=== PATIENT | male | born 1985 | race Caucasian/White ===

== ENCOUNTER 2023-11-05 20:43 | Emergency (ER) | payer MEDICAID ==
[~2023-11-05] VITALS: Ht 180.3 cm; Wt 72.6 kg
[2023-11-05 20:43] VITALS: BP 125/77; PULSE 75; RESP 16; TEMP 98.2; O2SAT 98
--- NOTE | 2023-11-05 20:43 | NUR ---
PT [facility] [employer], PREBOOK. TAKEN TO BED 10
--- NOTE | 2023-11-05 20:58 | NUR ---
Dr. Nur examining patient.
--- NOTE | 2023-11-05 21:29 | NUR ---
PT RETURN FROM CT
[2023-11-05 21:46] VITALS: BP 123/83; PULSE 67; RESP 23; O2SAT 97
--- NOTE | 2023-11-05 22:06 | NUR ---
Patient discharged with v/s stable. Written and verbal after care instructions given and explained. Patient verbalized understanding. Police with in custody. All questions addressed prior to discharge. Advised to follow up with PMD.
== END 2023-11-05 22:06 ==
LOC: MED 20:43
DX: Z02.89 Encounter for other administrative examinations (principal)
CPT/HCPCS: 99284

== ENCOUNTER 2023-11-06 00:30 | Emergency (ER) | payer MEDICAID ==
[~2023-11-06] VITALS: Ht 175.3 cm; Wt 74.8 kg
--- NOTE | 2023-11-06 00:34 | NUR ---
PT TAKEN TO BED 4
--- NOTE | 2023-11-06 00:41 | NUR ---
Dr. Nur examining patient.
[2023-11-06] MEDS ORDERED: NALOXONE 0.4 MG/ML VIAL IVP PRN (00:45)
[2023-11-06 01:02] VITALS: BP 110/88; PULSE 95; RESP 20; O2SAT 100
[2023-11-06 01:06] LABS: BASOPHILS # (AUTO) 0.2 K/uL (0.00-0.22); BASOPHILS % (AUTO) 3.4 % (0.0-2.0); EOSINOPHILS # (AUTO) 0.1 K/uL (0-0.4); EOSINOPHILS % (AUTO) 1.8 % (0.0-4.0); HEMATOCRIT 35.6 % (36-52); HEMOGLOBIN 11.8 g/dL (12.0-18.0); LYMPHOCYTES # (AUTO) 1.2 K/uL (2.0-11.5); LYMPHOCYTES % (AUTO) 18.7 % (20.5-51.1); MEAN CORPUSCULAR HEMOGLOBIN 24 pg (27-31); MEAN CORPUSCULAR HGB CONC 33 g/dL (33-37); MEAN CORPUSCULAR VOLUME 72.1 fL (80-94); MONOCYTES # (AUTO) 0.3 K/uL (0.8-1.0); MONOCYTES % (AUTO) 5.5 % (1.7-9.3); NEUTROPHILS # (AUTO) 4.3 K/uL (1.8-7.7); NEUTROPHILS % (AUTO) 70.6 % (42.2-75.2); PLATELET COUNT (AUTO) 371 K/uL (140-450); RED BLOOD CELL COUNT(AUTO) 4.94 MIL/uL (4.20-6.10); RED CELL DISTRIBUTION WIDTH 17.5 % (11.6-13.7); WHITE BLOOD COUNT (AUTO) 6.1 K/uL (4.8-10.8)
[2023-11-06 01:09] LABS: ANION GAP 13.7 (8-16); CALCIUM 9.3 mg/dL (8.5-10.1); CREATININE 0.9 mg/dL (0.6-1.3); POTASSIUM 3.7 mmol/L (3.5-5.1)
--- NOTE | 2023-11-06 01:10 | NUR ---
BIB [place] [employer], SWALLOWED DRUGS. PD SCANS SHOWED POSSIBLE DRUGS IN INTESTINES. PATIENT DENIES N/V, DENIES ABDONINAL PAIN/SOB. AAOX4, ABLE TO WALK WITHOUT ASSISTANCE, DOES NOT SWAY. SAFETY MEASURES IN PLACE [facility]X DENIES NKA
[2023-11-06 01:16] LABS: ALANINE AMINOTRANSFERASE 52 U/L (12-78); ALBUMIN 3.6 g/dL (3.4-5.0); ALKALINE PHOSPHATASE 213 U/L (50-136); ASPARTATE AMINOTRANSFERASE 33 U/L (15-37); BILIRUBIN,DIRECT 0.4 mg/dL (0.0-0.3); CREATINE KINASE, TOTAL 67 U/L (39-308); TOTAL BILIRUBIN 0.8 mg/dL (0.0-1.0); TOTAL PROTEIN, SERUM 8.5 g/dL (6.4-8.2)
[2023-11-06 01:17] LABS: ACETAMINOPHEN < 0.5 ug/ml (10-30); ALCOHOL, BLOOD < 3 mg/dL (<10); SALICYLATE < 2.8 mg/dL (2.8-20.0)
--- NOTE | 2023-11-06 02:15 | NUR ---
PATIENT RESTING IN BED. BREATHING EVEN AND UNLABORED. MONITORING IN PLACE.
--- NOTE | 2023-11-06 04:11 | NUR ---
PATIENT IN BED RESTING, NO SIGNS OF RESPIRATORY DISTRESS, NO COMPLAINTS AT THIS TIME, SAFETY MEASURES IN PLACE
[2023-11-06 04:22] LABS: AMPHETAMINE, URINE POSITIVE ng/ml (NEG <=1000); BARBITURATE, URINE NEGATIVE ng/ml (NEG <=200); BENZODIAZEPINE, URINE POSITIVE ng/mL (NEG <=200); COCAINE, URINE NEGATIVE ng/mL (NEG <=300)
[2023-11-06 04:23] LABS: CANNABINOID, URINE POSITIVE ng/mL (NEG <=50); OPIATE, URINE NEGATIVE ng/mL (NEG <=2000); PHENCYCLIDINE SCREEN,URINE NEGATIVE ng/mL (NEG <=25)
[2023-11-06 06:43] VITALS: BP 118/77; PULSE 77; RESP 18; O2SAT 100
--- NOTE | 2023-11-06 06:57 | NUR ---
Patient discharged with v/s stable. Written and verbal after care instructions given and explained. Patient verbalized understanding. Ambulatory with steady gait. All questions addressed prior to discharge. Advised to follow up with PMD.
== END 2023-11-06 06:57 | disposition home or self-care (01) ==
LOC: MED 00:30
DX: F15.10 Other stimulant abuse, uncomplicated (principal); F13.10 Sedative, hypnotic or anxiolytic abuse, uncomplicated
CPT/HCPCS: 36415; 80048; 80076; 80305; 82550; 85025; 93005; 99284; G0480; G0482